=== PATIENT | male | born 1955 ===

== ENCOUNTER 2021-02-09 12:27 | Emergency (ER) | payer MEDICARE, OTHER, SELFPAY ==
[2021-02-09] VITALS (16 sets, daily range): BP systolic 99–115; BP diastolic 55–64; PULSE 87–98; RESP 16–27; TEMP 37; O2SAT 92–99; BMI 25.9
[2021-02-09] MEDS: SODIUM CHLORIDE 0.9% 1,000 ML 1000 ML IV (13:23)
[2021-02-09 13:28] LABS: INR 1.3 (0.9-1.3)
[2021-02-09 13:31] LABS: Add Manual Diff / Slide Review NO; Basophils Absolute Auto 100 /uL (0-100); Basophils Percent Auto 0.7 % (0-2); Eosinophils Absolute Auto 400 /uL (0-450); Eosinophils Percent Auto 4.2 % (2-4); Hematocrit 42.6 % (41-53); Hemoglobin 14.9 g/dL (13.5-17.5); Lymphocytes Absolute Auto 1100 /uL (1100-4500); Lymphocytes Percent Auto 11.4 % (25-40); Mean Corpuscular Hemoglobin 31.7 PG (26-34); Mean Corpuscular Volume 90.5 fL (80-100); Monocytes Absolute Auto 1200 /uL (0-900); Monocytes Percent Auto 12.8 % (3-14); Neutrophils Absolute Auto 6700 /uL (1500-7000); Neutrophils Percent Auto 70.9 % (50-75); PTT Partial Thromboplastin Tim 35 SECONDS (26.4-36.2); Platelet Count 395 X10^3/uL (150-400); Red Cell Distribution Width 13.3 % (11.6-14.8); White Blood Cell Count 9.4 X10^3/uL (4.5-11.0)
[2021-02-09 13:36] LABS: Alanine Aminotransferase 22 IU/L (<50); Albumin 3.5 g/dL (3.5-5.0); Albumin Globulin Ratio 1.1 (1.0-2.8); Alkaline Phosphatase 72 U/L (38-126); Aspartate Aminotransferase 29 IU/L (17-59); BUN Creatinine Ratio 12.8 (6-22); Bilirubin Total 0.7 mg/dL (0.2-1.3); Blood Urea Nitrogen 16 mg/dL (9-20); Calcium 8.6 mg/dL (8.4-10.2); Carbon Dioxide 27 mmol/L (22-32); Chloride 94 mmol/L (98-107); Estimated Glomerular Filt Rate 57.6 mL/min (>60); Globulin 3.3 g/dL (1.7-4.1); Glucose 132 mg/dL (80-110); HEMOLYSIS < 15 (0-50); Lipase 158 U/L (23-300); Potassium 3.6 mmol/L (3.4-5.1); Sodium 129 mmol/L (137-145); Total Protein 6.8 g/dL (6.3-8.2)
[2021-02-09 13:37] LABS: Lactate (Lactic Acid) 1.6 mmol/L (0.7-2.1)
--- NOTE | 2021-02-09 13:46 | ED_ITS ---
HPI - General Adult General Chief complaint: Weakness Stated complaint: Weak Time Seen by Provider: 02/09/21 13:39 Source: patient Mode of arrival: EMS Limitations: no limitations History of Present Illness HPI narrative: Patient is a 65-year-old male with a history of lung cancer who is currently under treatment by oncology who is here for evaluation of 4 weeks of diarrhea. He states he is feeling very weak. No fevers. He is not currently on any medications to stop the diarrhea. He states that he has talked with his oncologist and there have been some adjustments to his prednisone. He denies any recent travel. Has been on antibiotics in the past but does not know the last time that this was given to him. Denies any abdominal discomfort. Related Data Home Medications Medication Instructions Recorded Confirmed [id number] #0 12/10/16 [Excedrin Extra Strength] folic acid #0 12/10/16 hydrocortisone 20 mg PO QAM 02/09/21 02/09/21 Previous Rx's Medication Instructions Recorded sildenafil [Viagra] 100 mg PO SEE INSTRUCTIONS #10 02/18/12 dexamethasone 4 mg PO BID #60 tab 02/09/21 loperamide [Imodium A-D] 2 mg PO Q6H PRN #20 cap 02/09/21 Allergies Allergy/AdvReac Type Severity Reaction Status Date / Time peanut AdvReac Mild Gastrointestinal Verified 02/09/21 13:22 Upset Review of Systems Constitutional Constitutional: Reports body ache(s), Denies chills, Reports fatigue and Reports fever(s) Eyes Eyes: Denies change in vision ENT Ears, Nose, Mouth, and Throat: Denies sore throat Cardiovascular Cardiovascular: Denies chest pain and Denies dyspnea Respiratory Respiratory: Denies dyspnea Gastrointestinal Gastrointestinal: Denies abdominal pain, Reports diarrhea, Denies nausea and Denies vomiting Genitourinary Genitourinary: Denies dysuria Genitourinary: Denies dysuria Musculoskeletal Musculoskeletal: Denies myalgias Integumentary/Breasts Skin/Breast: Denies rash Neurologic Neurologic: Denies behavioral changes Psychiatric Psychiatric: Denies behavioral changes Endocrine Endocrine: Reports fatigue Hematologic/Lymphatic On Anticoagulants: No Allergic/Immunologic Allergic/Immunologic: Denies urticaria Patient History Medical History 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) Lung mass (06/13/14) Panlobular 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) Family History (Updated 08/02/16 @ 00:00 by Conversion Provider) Father Family hx of prostate cancer Grandmother Family history of diabetes mellitus (DM) Social History Smoking Status: Never smoker Smoking Status: Never smoker alcohol intake frequency: 0-2 drinks per day Substance Use Type: does not use Exam Initial Vital Signs Initial Vital Signs: Vital Signs Temperature 98.6 F 02/09/21 13:03 Pulse Rate 98 H 02/09/21 13:03 Respiratory Rate 18 02/09/21 13:03 Blood Pressure 108/60 02/09/21 13:03 Pulse Oximetry 93 02/09/21 13:03 Const General: cooperative and comfortable Limitations: mental status not altered HENMT Head: normal to inspection and normocephalic Eyes General: appearance normal, both eyes and all related structures Resp Effort & Inspection: normal respiratory effort Auscultation: clear to auscultation bilaterally Cardio Rate: regular rate Rhythm: regular rhythm GI Inspection: non-distended Palpation: soft, No firm and No tender Skin Lesions: no lesions Rashes: no rashes Neuro General: patient alert, patient awake and patient oriented x3 Cognition: normal cognition Speech: speech normal Extrem General: normal to inspection and capillary refill normal Psych Appearance: grossly normal and well kempt Scores GCS [place] coma scale eye opening: Spontaneous [place] coma scale verbal response: Orientated [place] coma scale motor response: Obey commands [place] coma scale total score: 15 Course Orders Ordered: ED Orders 02/09/21 12:54 Complete Blood Count AUTO DIFF Stat Comprehensive Metabolic Panel Stat Lactate (Lactic Acid) Stat Lipase Stat Partial Thromboplastin Time Stat Prothrombin Time INR Stat 02/09/21 15:52 GI Panel (Film Array) Stat Heparin Sodium (Porcine) (Heparin 500 Unit/5 Ml Port Flush) 500 unit IV PRN PRN PRN Reason: Flush Last Admin: 02/09/21 19:03 Dose: 500 unit Documented by: SARA Sodium Chloride (Normal Saline 0.9%) 1,000 mls @ 150 mls/hr IV BOLUS ONE Stop: 02/09/21 22:12 Last Infusion: 02/09/21 18:40 Dose: 0 mls/hr Documented by: Admin: 02/09/21 15:45 Dose: 150 mls/hr Documented by: SARA Discontinued Medications Dexamethasone (Dexamethasone 10 Mg/Ml Vial) 5 mg IV NOW ONE Stop: 02/09/21 17:43 Last Admin: 02/09/21 17:47 Dose: 5 mg Documented by: SARA Sodium Chloride (Normal Saline 0.9%) 1,000 mls @ 1,000 mls/hr IV BOLUS ONE Stop: 02/09/21 14:05 Last Infusion: 02/09/21 15:47 Dose: 0 mls/hr Documented by: Admin: 02/09/21 13:23 Dose: 1,000 mls/hr Documented by: WANDY Loperamide HCl (Loperamide 2 Mg Capsule) 4 mg PO NOW ONE Stop: 02/09/21 17:43 Last Admin: 02/09/21 17:48 Dose: 4 mg Documented by: SARA Vital Signs Vital signs: Vital Signs - 8 hr 02/09/21 13:03 02/09/21 14:11 02/09/21 14:15 Temperature 98.6 F Pulse Rate 98 H 89 90 Respiratory Rate 18 24 25 H Blood Pressure 108/60 111/64 Pulse Oximetry 93 94 93 02/09/21 14:30 02/09/21 14:45 02/09/21 15:00 Temperature Pulse Rate 88 89 88 Respiratory Rate 27 H 25 H 23 Blood Pressure 102/55 L 99/56 L 109/61 Pulse Oximetry 93 92 94 02/09/21 15:15 02/09/21 15:41 02/09/21 16:00 Temperature Pulse Rate 87 91 H 91 H Respiratory Rate 24 16 Blood Pressure 109/61 Pulse Oximetry 95 95 99 02/09/21 16:30 02/09/21 17:00 02/09/21 17:30 Temperature Pulse Rate 93 H 91 H 92 H Respiratory Rate 24 22 Blood Pressure Pulse Oximetry 98 97 95 02/09/21 17:53 02/09/21 18:00 02/09/21 18:15 Temperature Pulse Rate 89 93 H 89 Respiratory Rate 23 23 22 Blood Pressure 115/62 110/60 112/59 L Pulse Oximetry 96 95 97 02/09/21 18:30 Temperature Pulse Rate 88 Respiratory Rate 23 Blood Pressure 111/56 L Pulse Oximetry 97 Medical Decision Making Medical Records Medical records reviewed: Yes I reviewed the patient's medical records. Lab Data Lab results reviewed: Yes I reviewed the patient's lab results. Result diagrams: 02/09/21 12:54 02/09/21 12:54 Labs: Lab Results 02/09/21 02/09/21 02/09/21 Range/Units 12:54 12:54 12:54 WBC 9.4 (4.5-11.0) X10^3/uL RBC 4.70 (4.5-5.9) X10^6/uL Hgb 14.9 (13.5-17.5) g/dL Hct 42.6 (41-53) % MCV 90.5 (80-100) fL MCH 31.7 (26-34) PG MCHC 35.0 (30-36) % RDW 13.3 (11.6-14.8) % Plt Count 395 (150-400) X10^3/uL Neut % (Auto) 70.9 (50-75) % Lymph % (Auto) 11.4 L (25-40) % [place] % (Auto) 12.8 (3-14) % Eos % (Auto) 4.2 H (2-4) % Baso % (Auto) 0.7 (0-2) % Neut # (Auto) 6700 (5904-8373) /uL Lymph # (Auto) 1100 (2149-7059) /uL [place] # (Auto) 1200 H (0-900) /uL Eos # (Auto) 400 (0-450) /uL Baso # (Auto) 100 (0-100) /uL PT 15.0 H (10.1-12.7) SECONDS INR 1.3 (0.9-1.3) APTT 35 (26.4-36.2) SECONDS Sodium 129 L (137-145) mmol/L Potassium 3.6 (3.4-5.1) mmol/L Chloride 94 L (98-107) mmol/L Carbon Dioxide 27 (22-32) mmol/L BUN 16 (9-20) mg/dL Creatinine 1.25 (0.66-1.25) mg/dL Estimated GFR 57.6 L (>60) mL/min BUN/Creatinine Ratio 12.8 (6-22) Glucose 132 H (80-110) mg/dL Lactate (0.7-2.1) mmol/L Calcium 8.6 (8.4-10.2) mg/dL Total Bilirubin 0.7 (0.2-1.3) mg/dL AST 29 (17-59) IU/L ALT 22 (<50) IU/L Alkaline Phosphatase 72 (38-126) U/L Total Protein 6.8 (6.3-8.2) g/dL Albumin 3.5 (3.5-5.0) g/dL Globulin 3.3 (1.7-4.1) g/dL Albumin/Globulin Ratio 1.1 (1.0-2.8) Lipase 158 (23-300) U/L Stl C. cayetanensis PCR (Not Detect) Stool Rotavirus (PCR) (Not Detect) Stool Adenovirus (PCR) (Not Detect) Stool Astrovirus (PCR) (Not Detect) Stool Cryptosporidium PCR (Not Detect) Stl E.coli Shiga Tox PCR (Not Detect) St Sh/Enteroin Ecoli PCR (Not Detect) Stool E coli O157 PCR Stl Enterotoxigenic E PCR (Not Detect) Stool EPEC (PCR) (Not Detect) Stl E. histolytica PCR (Not Detect) Stool Giardia Lamblia PCR (Not Detect) Stool Sapovirus (PCR) (Not Detect) Stl P. shigelloides PCR (Not Detect) St Y.enterocolitica PCR (Not Detect) Stool Vibrio (PCR) (Not Detect) Stl Vibrio cholerae PCR (Not Detect) Stl Enteroaggr Ecoli PCR (Not Detect) Stl Norovirus GI/GII PCR (Not Detect) Campylobacter (PCR) (Not Detect) C. difficile Tox (PCR) (Not Detect) Salmonella (PCR) (Not Detect) 02/09/21 02/09/21 Range/Units 12:54 15:52 WBC (4.5-11.0) X10^3/uL RBC (4.5-5.9) X10^6/uL Hgb (13.5-17.5) g/dL Hct (41-53) % MCV (80-100) fL MCH (26-34) PG MCHC (30-36) % RDW (11.6-14.8) % Plt Count (150-400) X10^3/uL Neut % (Auto) (50-75) % Lymph % (Auto) (25-40) % [place] % (Auto) (3-14) % Eos % (Auto) (2-4) % Baso % (Auto) (0-2) % Neut # (Auto) (9457-5136) /uL Lymph # (Auto) (6141-2223) /uL [place] # (Auto) (0-900) /uL Eos # (Auto) (0-450) /uL Baso # (Auto) (0-100) /uL PT (10.1-12.7) SECONDS INR (0.9-1.3) APTT (26.4-36.2) SECONDS Sodium (137-145) mmol/L Potassium (3.4-5.1) mmol/L Chloride (98-107) mmol/L Carbon Dioxide (22-32) mmol/L BUN (9-20) mg/dL Creatinine (0.66-1.25) mg/dL Estimated GFR (>60) mL/min BUN/Creatinine Ratio (6-22) Glucose (80-110) mg/dL Lactate 1.6 (0.7-2.1) mmol/L Calcium (8.4-10.2) mg/dL Total Bilirubin (0.2-1.3) mg/dL AST (17-59) IU/L ALT (<50) IU/L Alkaline Phosphatase (38-126) U/L Total Protein (6.3-8.2) g/dL Albumin (3.5-5.0) g/dL Globulin (1.7-4.1) g/dL Albumin/Globulin Ratio (1.0-2.8) Lipase (23-300) U/L Stl C. cayetanensis PCR Not detected (Not Detect) Stool Rotavirus (PCR) Not detected (Not Detect) Stool Adenovirus (PCR) Not detected (Not Detect) Stool Astrovirus (PCR) Not detected (Not Detect) Stool Cryptosporidium PCR Not detected (Not Detect) Stl E.coli Shiga Tox PCR Not detected (Not Detect) St Sh/Enteroin Ecoli PCR Not detected (Not Detect) Stool E coli O157 PCR Not Reportable Stl Enterotoxigenic E PCR Not detected (Not Detect) Stool EPEC (PCR) Not detected (Not Detect) Stl E. histolytica PCR Not detected (Not Detect) Stool Giardia Lamblia PCR Not detected (Not Detect) Stool Sapovirus (PCR) Not detected (Not Detect) Stl P. shigelloides PCR Not detected (Not Detect) St Y.enterocolitica PCR Not detected (Not Detect) Stool Vibrio (PCR) Not detected (Not Detect) Stl Vibrio cholerae PCR Not detected (Not Detect) Stl Enteroaggr Ecoli PCR Not detected (Not Detect) Stl Norovirus GI/GII PCR Not detected (Not Detect) Campylobacter (PCR) Not detected (Not Detect) C. difficile Tox (PCR) Not detected (Not Detect) Salmonella (PCR) Not detected (Not Detect) Urine Dip Bedside Urine Glucose Negative Bedside Urine Bilirubin - Negative Bedside Urine Ketone - Negative Urine Specific [place] 1.030 Bedside Urine Occult Blood + Bedside Urine pH 6 Bedside Urine Protein + 30 Bedside Urine Urobilinogen - Negative Bedside Urine Nitrite - Negative Bedside Urine Leukocytes - Negative Esterase Point of care testing: Urine Dip Bedside Urine Glucose Negative Bedside Urine Bilirubin - Negative Bedside Urine Ketone - Negative Urine Specific [place] 1.030 Bedside Urine Occult Blood + Bedside Urine pH 6 Bedside Urine Protein + 30 Bedside Urine Urobilinogen - Negative Bedside Urine Nitrite - Negative Bedside Urine Leukocytes - Negative Esterase ECG Data Attestation: I personally reviewed and interpreted this ECG as follows: Prior ECG tracings: not available for review Interpretation: Sinus rhythm Ventricular rate 99 Normal axis Normal QRS Normal QTC No ST T wave changes MDM Narrative Medical decision making narrative: Patient was able to give a stool sample and there was no signs of any infectious etiology. He does have a benign abdominal exam. Was transfused 2 L of fluid. His labs are unremarkable. I did discuss the case with his oncologist who recommended that the patient stop the hydrocortisone in be placed on dexamethasone 4 mg 2 times a day. He was given a dose of IV dexamethasone here in the emergency department. Oncologist thinks that this is a autoimmune reaction to the medication that he is on. Oncologist also okay with given Imodium. I discussed this with the patient. We will do the above recommendations. Will discharge home with follow-up. He was given return precautions and follow-up instructions. He expressed understanding and agreement. Discharge Plan Departure Patient Disposition: Home Clinical Impression: Diarrhea Instructions: Diarrhea (Alternative Therapy), Diarrhea Activity Restrictions/Additional Instructions: I did talk with your oncologist and he had asked us to switch you from the hydrocortisone to the dexamethasone. He would like you to stop the hydrocortisone. Your 1st dose of the dexamethasone will be tomorrow. He also stated that you can take Imodium/loperamide to see if this does not help with the diarrhea as well. Be sure to increase your fluid intake. Return to the emergency department for any new or worsening symptoms Prescriptions: New dexamethasone 4 mg tablet 4 mg PO BID Qty: 60 RF: 0 loperamide [Imodium A-D] 2 mg capsule 2 mg PO Q6H PRN (Reason: loose stool) Qty: 20 RF: 0 No Action sildenafil [Viagra] 100 MG tablet 100 mg PO SEE INSTRUCTIONS Qty: 10 RF: PRN folic acid 1 MG tablet Qty: 0 RF: 0 [id number] [Excedrin Extra Strength] 1 EACH tablet Qty: 0 RF: 0 hydrocortisone 10 mg tablet 20 mg PO QAM RF: 0
[2021-02-09] MEDS: SODIUM CHLORIDE 0.9% 1,000 ML 150 ML IV (15:45)
[2021-02-09 17:24] LABS: Adenovirus F 40/41 Not Detected (Not Detect); Astrovirus Not Detected (Not Detect); Campylobacter Not Detected (Not Detect); Clostridium difficile toxin AB Not Detected (Not Detect); Cryptosporidium Not Detected (Not Detect); Cyclospora cayetanensis Not Detected (Not Detect); Entamoeba histolytica Not Detected (Not Detect); Enteroaggregative E.coli Not Detected (Not Detect); Enteropathogenic E.coli Not Detected (Not Detect); Enterotoxigenic E.coli It/st Not Detected (Not Detect); Giardia lamblia Not Detected (Not Detect); Norovirus GI/GII Not Detected (Not Detect); Plesiomonsa shigelloides Not Detected (Not Detect); Rotavirus A Not Detected (Not Detect); Salmonella Not Detected (Not Detect); Sapovirus Not Detected (Not Detect); Shiga-like toxin-prod E.coli Not Detected (Not Detect); Shigella/Enteroinvasive E.coli Not Detected (Not Detect); Vibrio Not Detected (Not Detect); Vibrio cholerae Not Detected (Not Detect); Yersinia enterocolitica Not Detected (Not Detect)
[2021-02-09] MEDS: DEXAMETHASONE 10 MG/ML VIAL 5 MG IV (17:47)
[2021-02-09] MEDS: LOPERAMIDE 2 MG CAPSULE 4 MG PO (17:48)
== END 2021-02-09 20:10 | disposition home or self-care (01) ==
PROVIDERS: Emergency Provider Emergency Medicine
DX: R19.7 Diarrhea, unspecified (principal)
CPT/HCPCS: 36415; 80053; 81003; 83605; 83690; 85025; 85610; 85730; 87507; 93005; 96361; 96374; 99284; J1100; J1642